=== PATIENT | female | born 1970 | race Caucasian/White ===

== ENCOUNTER 2023-04-21 13:29 | Emergency (ER) | payer SELFPAY ==
--- OUTSIDE RECORDS SUMMARY | 2023-04-21 13:32 | XMS REPORT | Continuity of Care Document ---
:1970 Author Organization [facility] t Address [address] [facility] [address] [place] [id number] Care Team Providers Name Role Phone DEXTER CONTI Attending Clinician Unavailable Dexter Conti MD Attending Clinician Doctor Unassigned, [place] Attending Clinician Unavailable Payers Payer Name Policy Type Policy Number Effective Date Expiration Date S [employer] COMM[employer]CIAL [id number] 2017 NON-CONTRACT 00:00:00 GENERIC Problems Condition Condition Condition Status Onset Resolution Last Treating Co mments Source Name Details Category Date Date Treatment Clinician Date Abnormal Abnormal Disease Active 2019-07 Unive rs uterine uterine 0-19 ity of bleeding bleeding 00:00: [place] (AUB) (AUB) 00 Medical Branch History of History of Disease Active 2019-07 U nivers anemia anemia 0-19 ity of 00:00: [place] [facility] Allergies, Adverse Reactions, Alerts Allergy Allergy Status Severity Reaction(s) Onset Inactive Treating Comm ents Source Name Type Date Date Clinician Iodine Propensi Active Swelling 2019-07 Univer s ty to 0-19 ity of adverse 00:00: [place] reaction 00 Medical s Branch IODINE DRUG Active Swelling 2019-07 Univers INGREDI 0-19 ity of 00:00: [place] [facility] NO KNOWN Drug Active Univers ALLERGIE Class ity of S [facility] Social History Social Habit Start Date Stop Date Quantity Comments Source Exposure to Not sure [facility] SARS-CoV-2 [facility] (event) Branch Sex Assigned At Universit y of [facility] Tobacco use and 2020-05-07 2020-05-07 Never used Universit y of exposure 00:00:00 00:00:[address] [facility] Alcohol intake 2020-05-07 2020-05-07 Ex-drinker [facility] 00:00:00 00:00:00 (finding) [place] [facility] Alcohol Comment 2020-05-07 2020-05-07 quit when she Univer sity of 00:00:00 00:00:00 found out she [place] Medic al was a diabetic Branch in 2012 Smoking Status Start Date Stop Date Source Unknown if ever smoked [facility] [place] [facility] Never smoker [facility] Medications Ordered Filled Start Stop Current Ordering Indication Dosage Frequency Signature Comments Components Source Medication Medication Date Date Medication? Clinician (SIG) Name Name metFORMIN 2019-07 Yes 1000mg Take 1,000 Univers 1,000 mg 0-19 mg by ity of tablet 13:30: mouth 2 [place] 26 (two) Medical times Branch daily with meals. glipiZIDE 2019-07 Yes 10mg Take 10 mg Un simón 10 mg 0-19 by mouth 2 ity of tablet 13:30: (two) [place] 26 times Medical daily. Branch ferrous 2019-07 Yes 325mg Take 325 Unive rs sulfate 325 0-19 mg by ity of mg (65 mg 13:30: mouth [place] iron) EC 26 daily. Medical tablet Branch lisinopriL 2019-07 Yes 20mg Take 20 mg U nivers 20 mg 0-19 by mouth ity of tablet 13:30: daily. [place] [address] Medical Branch calcium 2019-07 Yes 2{tbl} Take 2 Univer s carbonate 0-19 tablets by ity of (CALCIUM 13:30: mouth [place] 500 ORAL) 26 daily. Medical Branch vitamin 2019-07 Yes 1000ug Take 1,000 Un simón B-12 0-19 mcg by ity of (VITAMIN 13:30: mouth [place] B-12) 1,000 26 daily. Medica l mcg tablet Branch metFORMIN 2019-07 Yes 1000mg Take 1,000 Univers 1,000 mg 0-19 mg by ity of tablet 13:30: mouth 2 [place] 26 (two) Medical times Branch daily with meals. glipiZIDE 2019-07 Yes 10mg Take 10 mg Un simón 10 mg 0-19 by mouth 2 ity of tablet 13:30: (two) [place] 26 times Medical daily. Branch ferrous 2019-07 Yes 325mg Take 325 Unive rs sulfate 325 0-19 mg by ity of mg (65 mg 13:30: mouth [place] iron) EC 26 daily. Medical tablet Branch lisinopriL 2019-07 Yes 20mg Take 20 mg U nivers 20 mg 0-19 by mouth ity of tablet 13:30: daily. [place] 26 Medical Branch calcium 2019-07 Yes 2{tbl} Take 2 Univer s carbonate 0-19 tablets by ity of (CALCIUM 13:30: mouth [place] 500 ORAL) 26 daily. Medical Branch vitamin 2019-07 Yes 1000ug Take 1,000 Un simón B-12 0-19 mcg by ity of (VITAMIN 13:30: mouth [place] B-12) 1,000 26 daily. Medica l mcg tablet Branch gabapentin 2019-07 Yes [id number] 300mg Take 1 Univers 300 mg 0-19 capsule by ity of capsule 00:00: mouth 3 [place] 00 (three) Medical times Branch daily. gabapentin 2019-07 Yes [id number] 300mg Take 1 Univers 300 mg 0-19 capsule by ity of capsule 00:00: mouth 3 [place] 00 (three) Medical times Branch daily. Procedures Procedure Date / Time Performing Clinician Source Performed ASSIGNMENT OF BENEFITS 2020-05-23 18:45:03 Doctor Unassigned, [facility] [place] [facility] PATIENT FINANCIAL 2020-05-07 13:07:39 Doctor Unassigned, [facility] POLICY [place] [facility] NO SHOW OR MISSED 2020-05-07 13:07:14 Doctor Unassigned, [facility] APPOINTMENT POLICY [place] [facility] ACKNOWLEDGEMENT CONSENT TO CONTACT FOR 2020-05-07 13:06:49 Doctor Unassigned, [facility] VOLUNTARY RESEARCH [place] [facility] h CONSENT/REFUSAL FOR 2020-05-07 13:06:19 Doctor Unassigned, [facility] DIAGNOSIS AND TREATMENT [place] [facility] ASSIGNMENT OF BENEFITS 2020-05-07 13:05:51 Doctor Unassigned, [facility] [place] [facility] ASSIGNMENT OF BENEFITS 2020-05-07 13:05:38 Doctor Unassigned, [facility] [place] [facility] Encounters Start End Encounter Admission Attending Care Care Encounter Source Date/Time Date/Time Type Type Clinicians Facility Department ID 2023-02-19 2023-02-19 Outpatient [facility] [id number] 023 [place] 11:47:44 11:47:44 08 Bernard Pak 2023-02-17 2023-02-17 Outpatient [facility] [id number] 023 [place] 11:24:41 11:24:41 [facility]01 [facility] [place] 2023-02-05 2023-02-05 Outpatient [facility] [id number] 023 [place] 09:05:18 09:05:18 0720 [facility] [place] 2023-02-04 2023-02-04 Outpatient [facility]FA [id number] 023 [place] 16:54:34 16:54:34 0719 [facility] [place] 2023-02-02 2023-02-02 Outpatient [facility] SFA [id number] 023 [place] 17:07:04 17:07:04 0717 [facility] [place] 2023-01-27 2023-01-27 Outpatient [facility] SFA [id number] 023 [place] 16:43:33 16:43:33 0711 [facility] 2023-01-26 2023-01-26 Outpatient [facility] SFA [id number] 023 Jo[place] 16:43:33 16:43:33 0710 [facility] [place] 2022-09-29 2022-09-29 Outpatient [facility] SFA [id number] 023 [place] 11:10:15 11:10:15 0313 [facility] [place] 2022-07-03 2022-07-03 Outpatient [facility] SFA [id number] 022 [place] 16:58:19 16:58:19 1215 [facility] 2020-07-09 2020-07-09 Outpatient R DEXTER CONTI [facility] [id number] Univers 08:00:00 08:00:[address] [facility] 2020-05-23 2020-05-23 [facility] Dexter Conti [facility] [id number] Univers 12:46:36 23:59:00 Encounter [place] [id number] ity of [place] [id number] [facility] [id number] [facility] 800 Branch 2020-05-23 2020-05-23 Outpatient R DEXTER CONTI [facility] [id number] Univers 13:20:00 13:20:[address] [facility] 2020-05-23 2020-05-23 Orders Doctor PETERSON [id number] Univers 00:00:00 00:00:00 Only Unassigned, M[place] [id number] [facility] 4.2.7.2.686 [place] [facility] [id number] [address] 2020-05-07 2020-05-07 Outpatient R DEXTER CONTI [facility] [id number] Univers 08:00:00 08:00:[address] [facility] 2020-05-07 2020-05-07 Orders Doctor NICHOLAS [id number] Univers 00:00:00 00:00:00 Only Unassigned, MELODY [id number] ity of [place] [facility] 4.2.7.2.686 Lukasz as [id number] [address] Results Test Description Test Time Test Comments Results Result Comments Source TSH, THIRD GENERATION 2023-02-06 06:20:50 Test Item Value Reference Range Interpretation Comme nts TSH, THIRD GENERATION (test 1.380 UIU/ML 0.400-4.100 UNLESS OTHERWISE INDICATED, code = 2821) ALL TESTING PER FORMED AT CLINICAL PATHOL [email or web address], [place] [address] 7475 CREDIT RISK SPECIALIST: Alexa MALCOLM [id number] [place] [id number] LIPID [id number] 05:49:11 Test Item Value Reference Range Interpretation Comments CHOLESTEROL (test 159 MG/DL <200 code = 2210) TRIGLYCERIDES (test 161 MG/DL <150 H code = 2232) HDL CHOLESTEROL (test 41 MG/DL >39 code = 2220) CALC LDL CHOL (test 92 MG/DL <100 NOTE: C ALCULATED LDL code = 2237) IS BASED ON LONNIE-SWAIN METHOD WHICHINCLUDES ADJUSTABLE TRIGLYCERIDE:VL DL CHOLESTEROL RAT IO.THIS FACTOR VARIES B Y MEASURED TRIGLY CERIDE AND NON-HDLCHOL ESTEROL CONCENTRATIONS WITH INCREASED CALCU LATED LDL SEENIN HIGH ER TRIGLYCERIDE OR LOWER NON-HDL SPECIME NS. FOR MOREINFORMATION , SEE CLIENT ANNOUNCE MENT AT [email or web address] RISK RATIO LDL/HDL 2.24 RATIO <3.22 (test code = 2238) COMPREHENSIVE METABOLIC [id number] 05:49:11 Test Item Value Reference Range Interpretation Comments GLUCOSE (test code = 208 MG/DL 70-99 H 2216) BUN (test code = 15 MG/DL 01-06) CREATININE (test 0.65 MG/DL 0.60-1.30 code = 221) eGFR (2020 CKD-EPI) 107 >60 (test code = 32069) ML/MIN/1.73 CALC BUN/CREAT (test 23 RATIO 6-28 code = 2234) SODIUM (test code = 141 MEQ/L 654-433 7263) POTASSIUM (test code 4.5 MEQ/L 3.5-5.4 = 2227) CHLORIDE (test code 104 MEQ/L 95-107 = 2214) CARBON DIOXIDE (test 27 MEQ/L 19-31 code = 2205) CALCIUM (test code = 9.7 MG/DL 8.5-10.5 2208) PROTEIN, TOTAL (test 7.4 G/DL 6.1-8.3 code = 2228) ALBUMIN (test code = 4.6 G/DL 3.5-5.2 2200) CALC GLOBULIN (test 2.8 G/DL 1.9-3.7 code = 2239) CALC A/G RATIO (test 1.6 RATIO 1.0-2.6 code = 2233) BILIRUBIN, TOTAL 0.3 MG/DL See_Comment [Automated message] (test code = 2206) The [employer] which generated this result transmit christopher reference range : <=1.2. The refe rence range was not u sed to interpret th is result as normal/abnormal . ALKALINE PHOSPHATASE 56 U/L 40-130 (test code = 2203) AST (test code = 19 U/L 9-40 2217) ALT (test code = 27 U/L 5-40 2218) HEMOGLOBIN [id number] 02:20:56 Test Item Value Reference Range Interpretation Comments HEMOGLOBIN A1c (test 6.9 % 4.2-5.6 H AMERIC AN DIABETES code = 58490) ASSOCIATION IDELINES FOR HGB A1C: PREDIABETES/INC REASED RISK . . . . . . . 5.7 -6.4% DIAGNOSIS OF DI ABETES . . . . . . . . . >=6 .5% WITH CONFIRMATION OR APPROPRIATE SYMPTOMS NOTE: ASSAY MAY BE AFFECTED BY HEMOGLOBINOPATH IES (SICKLE CELL ANEMIA, S- C DISEASE, OTHERS) OR GARO FICIALLY LOWERED BY DECR EASED RED CELL SURVIVAL ( HEMOLYTIC ANEMIAS, BLOOD LOSS, ETC.). CONSIDER ALTERN ATE TESTING OR LABORATORY C ONSULTATION. CBC W/AUTO DIFF WITH [id number] 01:54:06 Test Item Value Reference Range Interpretation Comments WBC (test code = 6.4 K/UL 3.5-11.0 1001) RBC (test code = 4.38 M/UL 3.80-5.40 1002) HEMOGLOBIN (test code 11.7 G/DL 11.5-15.5 = 1003) HEMATOCRIT (test code 36.1 % 34.0-45.0 = 1004) MCV (test code = 82.4 fL 80.0-99.0 1005) MCH (test code = 26.7 PG 25.0-33.0 1006) MCHC (test code = 32.4 G/DL 31.0-36.0 1007) RDW (test code = 13.1 % 11.5-15.0 1038) NEUTROPHILS (test 72.1 % code = 1008) LYMPHOCYTES (test 19.7 % code = 1010) MONOCYTES (test code 6.0 % = 1011) EOSINOPHILS (test 1.6 % code = 1012) BASOPHILS (test code 0.3 % = 1013) IMMATURE GRANULOCYTES 0.3 % (test code = 1036) NUCLEATED RBCS (test 0.0 /100 WBC'S See_Comment [Aut omated code = 1065) message] The sy stem which generated this result transmitted reference range : 0.0. The refere nce range was not u sed to interpret th is result as normal/abnormal . PLATELET COUNT (test 306 K/UL 130-400 code = 1015) ABSOLUTE NEUTROPHILS 4.59 K/UL 1.50-7.50 (test code = 1066) ABSOLUTE LYMPHOCYTES 1.25 K/UL 1.00-4.00 (test code = 1067) ABSOLUTE MONOCYTES 0.38 K/UL 0.20-1.00 (test code = 1068) ABSOLUTE EOSINOPHILS 0.10 K/UL 0.00-0.50 (test code = 1040) ABSOLUTE BASOPHILS 0.02 K/UL 0.00-0.20 (test code = 1069) ABS IMMATURE 0.02 K/UL 0.00-0.10 GRANULOCYTES (test code = 1020) ABS NUCLEATED RBCS 0.00 K/UL 0.00-0.11 (test code = 09415) HEMOGLOBIN [id number] 03:09:29 Test Item Value Reference Range Interpretation Comments HEMOGLOBIN A1c (test 6.6 % 4.2-5.6 H AMERIC AN DIABETES code = 80714) ASSOCIATION IDELINES FOR HGB A1C: PREDIABETES/INC REASED RISK . . . . . . . 5.7 -6.4% DIAGNOSIS OF DI ABETES . . . . . . . . . >=6 .5% WITH CONFIRMATION OR APPROPRIATE SYMPTOMS NOTE: ASSAY MAY BE AFFECTED BY HEMOGLOBINOPATH IES (SICKLE CELL ANEMIA, S- C DISEASE, OTHERS) OR GARO FICIALLY LOWERED BY DECR EASED RED CELL SURVIVAL ( HEMOLYTIC ANEMIAS, BLOOD LOSS, ETC.). CONSIDER ALTERN ATE TESTING OR LABORATORY C ONSULTATION. UNLESS OTHERWIS E INDICATED, ALL TESTING PER FORMED AT [employer], [place] [address] LABORATORY DIRE CTOR: CORDELIA SAMPSON M.D. CLIA NUMBER [id number] CAP ACCREDITATION N O. [id number] COMPREHENSIVE METABOLIC [id number] 06:53:34 Test Item Value Reference Range Interpretation Comments GLUCOSE (test code = 53 MG/DL 70-99 L 2216) BUN (test code = 15 MG/DL 6-20 2207) CREATININE (test 0.72 MG/DL 0.60-1.30 code = 2214) eGFR (2020 CKD-EPI) 101 >60 (test code = 52538) ML/MIN/1.73 CALC BUN/CREAT (test 21 RATIO 6-28 code = 2235) SODIUM (test code = 141 MEQ/L 960-777 2517) POTASSIUM (test code 4.3 MEQ/L 3.5-5.4 = 2227) CHLORIDE (test code 103 MEQ/L 95-107 = 2215) CARBON DIOXIDE (test 25 MEQ/L 19-31 code = 2206) CALCIUM (test code = 10.1 MG/DL 8.5-10.5 2208) PROTEIN, TOTAL (test 8.5 G/DL 6.1-8.3 H code = 2229) ALBUMIN (test code = 4.8 G/DL 3.5-5.2 2200) CALC GLOBULIN (test 3.7 G/DL 1.9-3.7 code = 2240) CALC A/G RATIO (test 1.3 RATIO 1.0-2.6 code = 2234) BILIRUBIN, TOTAL 0.3 MG/DL See_Comment [Automated message] (test code = 2207) The syste m which generated this result transmit christopher reference range : <=1.2. The refe rence range was not u sed to interpret th is result as normal/abnormal . ALKALINE PHOSPHATASE 52 U/L 40-130 (test code = 4) AST (test code = 36 U/L 9-40 2217) ALT (test code = 35 U/L 5-40 2218) LIPID [id number] 06:53:34 Test Item Value Reference Range Interpretation Comments CHOLESTEROL (test 169 MG/DL <200 code = 2210) TRIGLYCERIDES (test 114 MG/DL <150 code = 2232) HDL CHOLESTEROL (test 45 MG/DL >39 code = 2220) CALC LDL CHOL (test 103 MG/DL <100 H NOTE: C ALCULATED LDL code = 2237) IS BASED ON LONNIE-SWAIN METHOD WHICHINCLUDES ADJUSTABLE TRIGLYCERIDE:VL DL CHOLESTEROL RAT IO.THIS FACTOR VARIES B Y MEASURED TRIGLY CERIDE AND NON-HDLCHOL ESTEROL CONCENTRATIONS WITH INCREASED CALCU LATED LDL SEENIN HIGH ER TRIGLYCERIDE OR LOWER NON-HDL SPECIME NS. FOR MOREINFORMATION , SEE CLIENT ANNOUNCE MENT AT [email or web address] RISK RATIO LDL/HDL 2.29 RATIO <3.22 (test code = 2238) ALBUMIN/CREATININE RATIO, URINE, [id number] 06:42:31 Test Item Value Reference Range Interpretation Comments CREATININE, URINE, 29.0 MG/DL NOT ESTAB CONC. (test code = 2072) ALBUMIN, URINE, <0.2 MG/DL NOT ESTAB RANDOM (test code = 67649) CALC <7 MG/G <30 Note: Albumin/ Creatinine ALBUMIN/CREAT, RND ratio ref erence interval (test code = reflects ADA [place] [address]) guidelines. * [facility] has important patho logy staff changes effecti ve 09/17/2022. New pathology staff will provide uninter rupted, excellent patie nt care and clinical consultation. S ee URL: [email or web address] UNLESS O THERWISE INDICATED, ALL TESTING [facility]FORMED AT [facility] [employer] [address] [place], [place] [address] YUAN AYERS DIRECTOR: DION DA SILVA M.D. C ADRIAN NUMBER [id number] CAP ACCREDITATION N O. [id number] HEMOGLOBIN [id number] 02:34:20 Test Item Value Reference Range Interpretation Comments HEMOGLOBIN A1c (test 7.1 % 4.2-5.6 H AMERIC AN DIABETES code = 16231) ASSOCIATION IDELINES FOR HGB A1C: PREDIABETES/INC REASED RISK . . . . . . . 5.7 -6.4% DIAGNOSIS OF DI ABETES . . . . . . . . . >=6 .5% WITH CONFIRMATION OR APPROPRIATE SYMPTOMS NOTE: ASSAY MAY BE AFFECTED BY HEMOGLOBINOPATH IES (SICKLE CELL ANEMIA, S- C DISEASE, OTHERS) OR GARO FICIALLY LOWERED BY DECR EASED RED CELL SURVIVAL ( HEMOLYTIC ANEMIAS, BLOOD LOSS, ETC.). CONSIDER ALTERN ATE TESTING OR LABORATORY C ONSULTATION. [id number] 02:53:47 Test Item Value Reference Range Interpretation Comments AMYLASE (test code = 76 U/L 28-100 UNLESS OTHERWISE 2205) INDICATED, ALL TESTING PERFORMED [facility] PATHOLOGY [employer] [address] [place] [address] YUAN AYERS DIRECTOR: HALIMA LISA M.D. CLIA NUMBER [id number] CAP ACCREDITATION N O. [id number] 02:53:47 Test Item Value Reference Range Interpretation Comments LIPASE (test code = 2058) 48 U/L 13-60 [id number] 03:45:26 Test Item Value Reference Range Interpretation Comments AMYLASE (test code = 2205) 40 U/L 28-100 [id number] 03:45:26 Test Item Value Reference Range Interpretation Comments LIPASE (test code = 28 U/L 13-60 UNLESS OTHERWISE 2058) INDICATED, ALL TESTING PERFORMED [facility] [employer] [address] [place] [address] [facility] BALLARDCyrus AYERS DIRECTOR: HALIMA LISA M.D. CLIA NUMBER [id number] [place]EDITATION N O. [id number] HEMOGLOBIN [id number] 03:27:05 Test Item Value Reference Range Interpretation Comments HEMOGLOBIN A1c (test 12.0 % 4.2-5.6 H AMERI CAN DIABETES code = 17583) ASSOCIATION IDELINES FOR HGB A1C: PREDIABETES/INC REASED RISK . . . . . . . 5 .7-6.4% DIAGNOSIS OF DI ABETES . . . . . . . . . >=6 .5% WITH CONFIRMATION OR APPROPRIATE SYMPTOMS NOTE: ASSAY MAY BE AFFECTED BY HEMOGLOBINOPATH IES (SICKLE CELL ANEMIA, S- C DISEASE, OTHERS) OR GARO FICIALLY LOWERED BY DECR EASED RED CELL SURVIVAL ( HEMOLYTIC ANEMIAS, BLOOD LOSS, ETC.). CONSIDER ALTERN ATE TESTING OR LABORATORY C ONSULTATION. LIPID [id number] 02:37:12 Test Item Value Reference Range Interpretation Comments CHOLESTEROL (test 267 MG/DL <200 H code = 2210) TRIGLYCERIDES (test 779 MG/DL <150 H code = 2232) HDL CHOLESTEROL 31 MG/DL >39 L (test code = 2220) CALC LDL CHOL (test (NOTE) MG/DL <100 UNABLE T O CALCULATE A code = 2237) VALID LDL SAHIL STEROL WHEN THE TRIGLYCERIDEVAL UE IS GREATER THAN 40 0 MG/DL.UNABLE TO CALCULATE A AVINASH ID LDL CHOLESTEROL WHE N THE TRIGLYCERIDEVAL UE IS GREATER THAN 40 0 MG/DL. NOTE: CALCULATE D LDL IS BASED ON LONNIE -SWAIN METHOD WHICHINC LUDES ADJUSTABLE TRIGLYCERIDE:VL DL CHOLESTEROL RAT IO.THIS FACTOR VARIES B Y MEASURED TRIGLY CERIDE AND NON-HDLCHOL ESTEROL CONCENTRATIONS WITH INCREASED CALCU LATED LDL SEENIN HIGH ER TRIGLYCERIDE OR LOWER NON-HDL SPECIME NS. FOR MOREINFORMATION , SEE CLIENT ANNOUNCE MENT AT [email or web address] RISK RATIO LDL/HDL (NOTE) RATIO <3.22 UNABLE T O CALCULATE (test code = 2238) COMPREHENSIVE METABOLIC [id number] 02:37:12 Test Item Value Reference Range Interpretation Comments GLUCOSE (test code = 286 MG/DL 70-99 H 2216) BUN (test code = 12 MG/DL -20 2207) CREATININE (test 0.43 MG/DL 0.60-1.30 L code = 2214) eGFR (2020 CKD-EPI) 118 >60 (test code = 05765) ML/MIN/1.73 CALC BUN/CREAT (test 28 RATIO - code = 2235) SODIUM (test code = 136 MEQ/L 152-535 4003) POTASSIUM (test code 4.5 MEQ/L 3.5-5.4 = 2227) CHLORIDE (test code 99 MEQ/L 95-107 = 221) CARBON DIOXIDE (test 26 MEQ/L 19-31 code = 220) CALCIUM (test code = 9.6 MG/DL 8.5-10.5 2208) PROTEIN, TOTAL (test 7.8 G/DL 6.1-8.3 code = 222) ALBUMIN (test code = 4.3 G/DL 3.5-5.2 2200) CALC GLOBULIN (test 3.5 G/DL 1.9-3.7 code = 2240) CALC A/G RATIO (test 1.2 RATIO 1.0-2.6 code = 223) BILIRUBIN, TOTAL 0.3 MG/DL See_Comment [Automated message] (test code = 2206) The [employer] which generated this result transmitted ref erence range: <=1.2. T he reference range was not used to int erpret this result as normal/abnormal . ALKALINE PHOSPHATASE 111 U/L 40-128 (test code = 2203) AST (test code = 15 U/L 9-40 2217) ALT (test code = 30 U/L 5-40 UNLESS OTH ERWISE 2218) INDICATED, ALL TESTING PERFORM ED [facility], [facility]. [address] [place] [id number] [place] [address] DIRECTOR: HALIMA LISA M.D. CLIA NUMBER [id number] CAP ACCREDITATION N O. [id number] CONSENT TO CONTACT FOR VOLUNTARY [id number] 13:06:49 Test Item Value Reference Range Interpretation Comments Consent To Contact For Voluntary Yes Research (test code = 4947) [facility]
[2023-04-21 14:19] LABS: Absolute Lymphocytes (CBC) 1.6 K/uL (0.7-4.9); Hematocrit 38.1 % (36.0-45.0); MCV 78.7 fL (80-100); MPV 7.7 fL (7.6-11.3); Platelets 241 thou/uL (152-406); RBC Red Blood Cell Count 4.84 M/uL (3.86-4.86)
[2023-04-21 14:23] LABS: Protime INR 1.05
[2023-04-21] MEDS ORDERED: NA CHLORIDE 0.9% 1,000 ML ONE (14:24)
--- NOTE | 2023-04-21 14:41 | RAD REPORT ---
EXAM DESCRIPTION: US - Extrem Venous W Compress Kj - 04/21/2023 2:33 pm CLINICAL HISTORY: PAIN Bilateral leg edema and swelling. COMPARISON: No comparisons TECHNIQUE: Real-time sonographic interrogation of the left and right lower extremity deep venous sys tems was performed. FINDINGS: Normal compressibility, flow augmentation, phasic flow and spontaneous flow is identified in both the left and right lower extremity deep venous systems. IMPRESSION: No sonographic evidence of left or right lower extremity deep venous thrombosis.
[2023-04-21 14:44] LABS: ALT/SGPT 31 U/L (13-56); AST/SGOT 9 U/L (15-37); Albumin 3.6 g/dL (3.4-5.0); Alkaline Phosphatase 76 U/L (45-117); BUN Blood Urea Nitrogen 18 mg/dL (7-18); Bicarbonate 25 mEq/L (21-32); Bilirubin Total 0.3 mg/dL (0.2-1.0); Glomerular Filtration Rate 67 ml/min (=/>90); Glucose Level 281 mg/dL (74-106); Lipase 53 U/L (13-75); Magnesium 1.9 mg/dL (1.6-2.4); NT PRO-BNP 9 pg/mL (<125); Potassium 3.9 mEq/L (3.5-5.1); Protein, Total 7.9 g/dL (6.4-8.2); Sodium Level 134 mEq/L (136-145); Troponin High Sensitivity 4.6 pg/mL (<58.9)
[2023-04-21 14:51] LABS: Bilirubin Direct < 0.1 mg/dL (0-0.2); Bilirubin Indirect, Calculated ND mg/dL (0.2-0.8)
[2023-04-21 15:01] LABS: Specific Gravity 1.014 (1.005-1.030); Urine Bacteria <20 /HPF (<20); Urine Bilirubin NEGATIVE (Negative); Urine Blood Negative (Negative); Urine Clarity Turbid (Clear); Urine Color Light-Yellow (Yellow); Urine Crystals Unidentified Few /HPF (None Seen); Urine Glucose 4+ (Negative); Urine Mucus Slight /HPF (None Seen); Urine Protein TRACE (Negative); Urine RBC <5 /HPF (None Seen); Urine Urobilinogen Normal (Normal)
--- NOTE | 2023-04-21 15:03 | RAD REPORT ---
EXAM DESCRIPTION: RAD - Chest Single View - 04/21/2023 2:55 pm CLINICAL HISTORY: PAIN Chest pain. COMPARISON: <Comparisons> FINDINGS: Portable technique limits examination quality. The lungs are grossly clear. The heart is normal in size. No displaced fractures. IMPRESSION: No acute intrathoracic process suspected.
--- NOTE | 2023-04-21 15:34 | RAD REPORT ---
EXAM DESCRIPTION: CT - Head Brain Wo Cont - 04/21/2023 3:24 pm CLINICAL HISTORY: DIZZINESS Headache, drowsiness, dizziness COMPARISON: No comparisons TECHNIQUE: All CT scans are performed using dose optimization technique as appropriate and may inclu de automated exposure control or mA/KV adjustment according to patient size. FINDINGS: No intracranial hemorrhage, hydrocephalus or extra-axial fluid collection.No areas of brai n edema or evidence of midline shift. The paranasal sinuses and mastoids are clear. The calvarium is intact. IMPRESSION: No acute intracranial abnormality.
--- NOTE | 2023-04-21 16:28 | EDPHYS ---
Physician Documentation [facility] Name: Bonnie Quigley Age: 52 yrs Sex: Female : 1970 Arrival Date: 04/21/2023 Time: 13:29 Bed 14 Private MD: ED Physician Amari Garnett HPI: 04/21 16:23 This 52 yrs old Female presents to ER via EMS with complaints of Weakness, irma Dizziness, Headache, Leg Pain. 16:23 WEAK, DIZZY. The patient presents with dizziness, generalized weakness. Onset: The irma symptoms/episode began/occurred just prior to arrival. Context: occurred at work. Modifying factors: The symptoms are alleviated by nothing, the symptoms are aggravated by standing up. Associated signs and symptoms: Pertinent positives: headache. Severity of symptoms: At their worst the symptoms were mild in the emergency department the symptoms are unchanged. Patient's baseline: Neuro: alert and fully oriented. Historical: - Allergies: 13:41 Iodine; eh3 - Home Meds: 13:41 Metformin Oral [Active]; Lisinopril Oral [Active]; eh3 - PMHx: 13:41 Diabetes mellitus; Hypertensive disorder; eh3 13:43 Neuropathy; eh3 - Immunization history:: Adult Immunizations up to date. - Social history:: Smoking status: Patient denies any tobacco usage or history of. - Family history:: not pertinent. ROS: 16:23 Constitutional: Negative for fever, chills, and weight loss, Eyes: Negative for injury, irma pain, redness, and discharge, ENT: Negative for injury, pain, and discharge, Neck: Negative for injury, pain, and swelling, Cardiovascular: Negative for chest pain, palpitations, and edema, Respiratory: Negative for shortness of breath, cough, wheezing, and pleuritic chest pain, Abdomen/GI: Negative for abdominal pain, nausea, vomiting, diarrhea, and constipation, Back: Negative for injury and pain, : Negative for injury, bleeding, discharge, and swelling, Skin: Negative for injury, rash, and discoloration, Psych: Negative for depression, anxiety, suicide ideation, homicidal ideation, and hallucinations, Allergy/Immunology: Negative for hives, rash, and allergies, Endocrine: Negative for neck swelling, polydipsia, polyuria, polyphagia, and marked weight changes, Hematologic/Lymphatic: Negative for swollen nodes, abnormal bleeding, and unusual bruising, 16:23 MS/extremity: Positive for pain, of the right leg and left leg, 16:23 Neuro: Positive for weakness, Exam: 16:23 Constitutional: This is a well developed, well nourished patient who is awake, alert, irma and in no acute distress. Head/Face: Normocephalic, atraumatic. Eyes: Pupils equal round and reactive to light, extra-ocular motions intact. Lids and lashes normal. Conjunctiva and sclera are non-icteric and not injected. Cornea within normal limits. Periorbital areas with no swelling, redness, or edema. ENT: Nares patent. No nasal discharge, no septal abnormalities noted. Tympanic membranes are normal and external auditory canals are clear. Oropharynx with no redness, swelling, or masses, exudates, or evidence of obstruction, uvula midline. Mucous membranes moist. Neck: Trachea midline, no thyromegaly or masses palpated, and no cervical lymphadenopathy. Supple, full range of motion without nuchal rigidity, or vertebral point tenderness. No Meningismus. Chest/axilla: Normal chest wall appearance and motion. Nontender with no deformity. No lesions are appreciated. Cardiovascular: Regular rate and rhythm with a normal S1 and S2. No gallops, murmurs, or rubs. Normal PMI, no JVD. No pulse deficits. Respiratory: Lungs have equal breath sounds bilaterally, clear to auscultation and percussion. No rales, rhonchi or wheezes noted. No increased work of breathing, no retractions or nasal flaring. Abdomen/GI: Soft, non-tender, with normal bowel sounds. No distension or tympany. No guarding or rebound. No evidence of tenderness throughout. Back: No spinal tenderness. No costovertebral tenderness. Full range of motion. Skin: Warm, dry with normal turgor. Normal color with no rashes, no lesions, and no evidence of cellulitis. MS/ Extremity: Pulses equal, no cyanosis. Neurovascular intact. Full, normal range of motion. Neuro: Awake and alert, GCS 15, oriented to person, place, time, and situation. Cranial nerves II-XII grossly intact. Motor strength 5/5 in all extremities. Sensory grossly intact. Cerebellar exam normal. Normal gait. Psych: Awake, alert, with orientation to person, place and time. Behavior, mood, and affect are within normal limits. 16:23 ECG was reviewed by the Attending Physician. 16:23 Musculoskeletal/extremity: DVT Exam: No signs of deep vein thrombosis. no pain, no swelling, no tenderness, negative Homans' sign noted on exam, no appreciated bluish discoloration, no erythema, no increased warmth, Vital Signs: 13:36 BP 140 / 77; Pulse 94; Resp 16; Temp 98.8(O); Pulse Ox 100% on R/A; Weight 79.38 kg; eh3 Height 5 ft. 2 in. ; Pain 5/10; 14:30 BP 141 / 82; Pulse 96; Resp 15; Pulse Ox 100% on R/A; eh3 15:30 BP 138 / 70; Pulse 91; Resp 14; Pulse Ox 96% on R/A; eh3 16:30 BP 122 / 72; Pulse 86; Resp 15; Pulse Ox 96% on R/A; eh3 13:36 Body Mass Index 32.01 (79.38 kg, 157.48 cm) 3 13:36 Pain Scale: Adult eh3 NIH Stroke Scale Scores: 17:01 NIHSS Score: 0 irma MDM: 13:30 Patient medically screened. irma 13:31 Patient medically screened. irma 16:26 Differential Diagnosis altered mental status. Differential diagnosis: cardiac irma arrhythmia, CVA, generalized weakness, GI bleed, hypovolemia, idiopathic dizziness, near-syncope, sepsis, syncope, TIA, vertigo. Data reviewed: vital signs, nurses notes, EMS record, lab test result(s), EKG, radiologic studies, CT scan, plain films. Consideration of Admission/Observation Escalation of care including admission/observation considered. I considered the following discharge prescriptions or medication management in the emergency department Medications were administered in the Emergency Department. See MAR. Independent interpretation of the following test(s) in the Emergency Department EKG: See my EKG interpretation above. Test considered but Not performed: MRI: NO MRI BRAIN. Care significantly affected by the following chronic conditions: Diabetes, Hypertension. Counseling: I had a detailed discussion with the patient and/or guardian regarding the historical points, exam findings, and any diagnostic results supporting the discharge/admit diagnosis, lab results, radiology results, the need for outpatient follow up, for definitive care, a family practitioner. 10/03 14:04 Order name: Basic Metabolic Panel; Complete Time: 15:07 irma 04/21 14:04 Order name: CBC with Diff; Complete Time: 15:07 irma 04/21 14:04 Order name: LFT's; Complete Time: 15:07 irma 04/21 14:04 Order name: Magnesium; Complete Time: 15:07 irma 04/21 14:04 Order name: NT PRO-BNP; Complete Time: 15:07 irma 04/21 14:04 Order name: PT-INR; Complete Time: 15:07 irma 04/21 14:04 Order name: Troponin HS; Complete Time: 15:07 irma 04/21 14:04 Order name: Lipase; Complete Time: 15:07 irma 04/21 14:04 Order name: Urinalysis w/ reflexes; Complete Time: 15:07 irma 04/21 14:04 Order name: TSH; Complete Time: 15:07 irma 04/21 14:04 Order name: Flu; Complete Time: 15:07 irma 04/21 14:04 Order name: COVID-19 SARS RT PCR; Complete Time: 15:07 irma 04/21 17:03 Order name: Glucose, Ancillary Testing EDMS 04/21 14:04 Order name: XRAY Chest (1 view); Complete Time: 15:07 irma 04/21 14:04 Order name: CT Head Brain wo Cont; Complete Time: 15:54 irma 04/21 14:04 Order name: US Extremity Venous W Compression Kj; Complete Time: 15:07 irma 04/21 14:04 Order name: EKG; Complete Time: 14:05 irma 04/21 14:04 Order name: Cardiac monitoring; Complete Time: 14:05 irma 04/21 14:04 Order name: EKG - Nurse/Tech; Complete Time: 14:05 irma 04/21 14:04 Order name: IV Saline Lock; Complete Time: 14:05 irma 04/21 14:04 Order name: Labs collected and sent; Complete Time: 14:05 irma 04/21 14:04 Order name: O2 Per Protocol; Complete Time: 14:05 irma 04/21 14:04 Order name: O2 Sat Monitoring; Complete Time: 14:05 irma 04/21 16:28 Order name: PO challenge; Complete Time: 16:59 irma EC:23 Rate is 97 beats/min. Rhythm is regular. QRS [place] is Normal. [place] interval is normal. QRS irma interval is normal. QT interval is normal. No Q waves. T waves are Normal. No ST changes noted. Clinical impression: NSR w/ Non-specific ST/T Changes and No evidence of ischemia. Interpreted by me. Reviewed by me. Administered Medications: 14:35 Drug: NS 0.9% IV 1000 ml IV at 1 bolus Per protocol; 1000 mL bolus Route: IV; Rate: 1 eh3 bolus; Site: right forearm; 16:00 Follow up: IV Status: Completed infusion; IV Intake: 1000ml eh3 17:00 Drug: Ketorolac IVP 15 mg IVP once Route: IVP; Site: right forearm; eh3 17:15 Follow up: Response: No adverse reaction eh3 17:00 Drug: Ondansetron IVP 4 mg IVP once; over 2 minutes Route: IVP; Site: right forearm; eh3 17:15 Follow up: Response: No adverse reaction eh3 17:00 Drug: Acetaminophen PO 650 mg PO once Route: PO; eh3 17:15 Follow up: Response: No adverse reaction eh3 17:09 Drug: Aspirin PO Chewable Tablet 81 mg PO once Route: PO; eh3 17:14 Follow up: Response: Medication administered at discharge. eh3 Point of Care Testing: Blood Glucose: 13:56 Blood Glucose: 278 mg/dL; eh3 Ranges: Critical Glucose Levels:Adult <50 mg/dl or >400 mg/dl <40 mg/dl or >180 mg/dl Disposition Summary: 04/21/23 16:28 Discharge Ordered Notes: Location: Home irma Problem: new irma Symptoms: have improved irma Condition: Stable irma Diagnosis - Weakness irma - Syncope Near irma - Type 2 diabetes mellitus with hyperglycemia irma - Headache irma Followup: irma - With: Private Physician - When: 2 - 3 days - Reason: Recheck today's complaints, Continuance of care, Re-evaluation by your physician Followup: irma - With: Toni Boyle MD - When: 2 - 3 days - Reason: Recheck today's complaints, Re-evaluation by your physician Discharge Instructions: - Discharge Summary Sheet irma - Hyperglycemia irma - Near-Syncope irma - Weakness irma - Fatigue irma - Near-Syncope, [id number] irma - Diabetes Mellitus and Nutrition, Adult irma - Weakness, [id number] irma - Aspirin and Your Heart irma Forms: - Medication Reconciliation Form irma - Thank You Letter irma - Antibiotic Education irma - Prescription Opioid Use irma - Patient Portal Instructions irma - Leadership Thank You Letter irma NIH Stroke Scale - NIH Stroke Score Date: 04/21/2023 Time: 17:01 Total Score = 0 10. Dysarthria (speech clarity - read or repeat words) - 0(Normal) 11. Extinction and Inattention (visual/tactile/auditory/spatial/personal) - 0(No abnormality) 1a. Level of Consciousness (LOC) - 0(Alert) 1b. Level of Consciousness (LOC) (Month \T\ Age) - 0(Both) 1c. LOC Commands (Open \T\ Closes Eyes/Core Machine Operator) - 0(Both) 2. Best Gaze (Lateral Gaze Paresis) - 0(Normal) 3. Visual Field Loss - 0(No visual loss) 4. Facial Palsy - 0(Normal) 5a. Left Arm: Motor (10-second hold) - 0(No drift) 5b. Right Arm: Motor (10-second hold) - 0(No drift) 6a. Left Leg: Motor (5-second hold - always test supine) - 0(No drift) 6b. Right Leg: Motor (5-second hold - always test supine) - 0(No drift) 7. Limb Ataxia (finger/nose \T\ heel/jeter - test with eyes open) - 0(Absent) 8. Sensory Loss (pinprick arms/legs/face) - 0(Normal) 9. Best Language: Aphasia (description/naming/reading) - 0(No aphasia) Initials: [facility] Signatures: Dispatcher [employer] EDMS Amari Garnett MD MD cha Hall, Erin RN RN eh3 Corrections: (The following items were deleted from the chart) 15:24 14:05 Chest For PE Angio+CT.RAD.BRZ ordered. EDMS EDMS
--- NOTE | 2023-04-21 16:28 | ER ---
Nurse's Notes [facility] Name: Bonnie Quigley Age: 52 yrs Sex: Female : 1970 Arrival Date: 04/21/2023 Time: 13:29 Bed 14 Private MD: Diagnosis: Weakness;Syncope Near;Type 2 diabetes mellitus with hyperglycemia;Headache Presentation: 04/21 13:36 Chief complaint: EMS states: toned out to place of work, sudden onset of dizziness, eh3 weakness, headache, and BLE pain. Coronavirus screen: Vaccine status: Patient reports receiving the 2nd dose of the covid vaccine. Ebola Screen: No symptoms or risks identified at this time. No acute neurological deficit is noted. The patients blood glucose was checked prior to arriving to the hospital and was found to be hyperglycemic. Initial Sepsis Screen: Does the patient meet any 2 criteria? HR > 90 bpm. No. Patient's initial sepsis screen is negative. Does the patient have a suspected source of infection? No. Patient's initial sepsis screen is negative. Risk Assessment: Do you want to hurt yourself or someone else? Patient reports no desire to harm self or others. Onset of symptoms was April 21, 2023. 13:36 Method Of Arrival: EMS: [facility] 13:36 Acuity: DANIEL 2 3 13:36 Care prior to arrival: Glucose check: 310. eh3 Triage Assessment: 13:43 The onset of the patients symptoms was April 21, 2023 at 13:20. General: Appears in eh3 no apparent distress. uncomfortable, Behavior is cooperative, appropriate for age. Pain: Complains of pain in head, right leg and left leg Pain radiates to right arm and left arm. Neuro: Level of Consciousness is awake, alert, obeys commands, Oriented to person, place, time, situation, Export Documents Clerk are equal bilaterally Moves all extremities. Speech is normal, Facial symmetry appears normal, Pupils are PERRLA, Tingling in right arm, left arm, right leg and left leg Reports dizziness, headache weakness. Cardiovascular: Capillary refill < 3 seconds Rhythm is sinus rhythm. Respiratory: Airway is patent Respiratory effort is even, unlabored, Respiratory pattern is regular, symmetrical. GI: Abdomen is round non-distended. Derm: Skin is intact, Skin is diaphoretic, Skin is pink, Skin temperature is warm. Musculoskeletal: Circulation, motion, and sensation intact. Range of motion: intact in all extremities. Historical: - Allergies: 13:41 Iodine; eh3 - Home Meds: 13:41 Metformin Oral [Active]; Lisinopril Oral [Active]; eh3 - PMHx: 13:41 Diabetes mellitus; Hypertensive disorder; eh3 13:43 Neuropathy; eh3 - Immunization history:: Adult Immunizations up to date. - Social history:: Smoking status: Patient denies any tobacco usage or history of. - Family history:: not pertinent. Screenin:46 [facility] ED Fall Risk Assessment (Adult) Score/Fall Risk Level 0 - 2 = Low Risk. Abuse eh3 screen: Denies threats or abuse. Denies injuries from another. Nutritional screening: No deficits noted. Tuberculosis screening: No symptoms or risk factors identified. Assessment: 13:46 VAN Scoring: Arm Drift: Patients demonstrates NO arm weakness. Patient is VAN Negative. eh3 14:30 Reassessment: Patient appears in no apparent distress at this time. Patient and/or [facility] family updated on plan of care and expected duration. Pain level reassessed. Patient is alert, oriented x 3, equal unlabored respirations, skin warm/dry/pink. 15:30 Reassessment: Patient appears in no apparent distress at this time. Patient and/or [facility] family updated on plan of care and expected duration. Pain level reassessed. Patient is alert, oriented x 3, equal unlabored respirations, skin warm/dry/pink. 16:30 Reassessment: Patient appears in no apparent distress at this time. Patient and/or [facility] family updated on plan of care and expected duration. Pain level reassessed. Patient is alert, oriented x 3, equal unlabored respirations, skin warm/dry/pink. Vital Signs: 13:36 BP 140 / 77; Pulse 94; Resp 16; Temp 98.8(O); Pulse Ox 100% on R/A; Weight 79.38 kg; eh3 Height 5 ft. 2 in. ; Pain 5/10; 14:30 BP 141 / 82; Pulse 96; Resp 15; Pulse Ox 100% on R/A; eh3 15:30 BP 138 / 70; Pulse 91; Resp 14; Pulse Ox 96% on R/A; eh3 16:30 BP 122 / 72; Pulse 86; Resp 15; Pulse Ox 96% on R/A; eh3 13:36 Body Mass Index 32.01 (79.38 kg, 157.48 cm) eh3 13:36 Pain Scale: Adult eh3 NIH Stroke Scale Scores: 17:01 NIHSS Score: 0 [facility] ED Course: 13:30 Patient arrived in ED. irma 13:30 Amari Garnett MD is Attending Physician. irma 13:34 Edel Cronin, RN is Primary Nurse. eh3 13:41 Triage completed. eh3 13:43 Arm band placed on. eh3 13:46 Patient has correct armband on for positive identification. Placed in gown. Bed in low eh3 position. Call light in reach. Side rails up X2. Provided Education on: Use of call infante. Client placed on continuous cardiac and pulse oximetry monitoring. NIBP monitoring applied. 14:04 Inserted saline lock: 22 gauge in right forearm, using aseptic technique. Blood eh3 collected. 14:34 US Extremity Venous W Compression Jk In Process Unspecified. EDMS 14:57 XRAY Chest (1 view) In Process Unspecified. EDMS 15:25 CT Head Brain wo Cont In Process Unspecified. EDMS 17:12 Toni Boyle MD is Referral Physician. irma 17:14 No provider procedures requiring assistance completed. IV discontinued, intact, eh3 bleeding controlled, No redness/swelling at site. Pressure dressing applied. Administered Medications: 14:35 Drug: NS 0.9% IV 1000 ml IV at 1 bolus Per protocol; 1000 mL bolus Route: IV; Rate: 1 eh3 bolus; Site: right forearm; 16:00 Follow up: IV Status: Completed infusion; IV Intake: 1000ml eh3 17:00 Drug: Ketorolac IVP 15 mg IVP once Route: IVP; Site: right forearm; eh3 17:15 Follow up: Response: No adverse reaction eh3 17:00 Drug: Ondansetron IVP 4 mg IVP once; over 2 minutes Route: IVP; Site: right forearm; eh3 17:15 Follow up: Response: No adverse reaction eh3 17:00 Drug: Acetaminophen PO 650 mg PO once Route: PO; eh3 17:15 Follow up: Response: No adverse reaction eh3 17:09 Drug: Aspirin PO Chewable Tablet 81 mg PO once Route: PO; eh3 17:14 Follow up: Response: Medication administered at discharge. eh3 Medication: 17:14 VIS not applicable for this client. 3 Point of Care Testing: Blood Glucose: 13:56 Blood Glucose: 278 mg/dL; 3 Ranges: Intake: 16:00 IV: 1000ml; Total: 1000ml. [facility] Outcome: 16:28 Discharge ordered by . irma 17:14 Discharged to home ambulatory, with family, [facility] 17:14 Condition: stable 17:14 Discharge instructions given to patient, Instructed on discharge instructions, follow up and referral plans. Demonstrated understanding of instructions, follow-up care, 17:16 Patient left the ED. 3 NIH Stroke Scale - NIH Stroke Score Date: 04/21/2023 Time: 17:01 Total Score = 0 10. Dysarthria (speech clarity - read or repeat words) - 0(Normal) 11. Extinction and Inattention (visual/tactile/auditory/spatial/personal) - 0(No abnormality) 1a. Level of Consciousness (LOC) - 0(Alert) 1b. Level of Consciousness (LOC) (Month \T\ Age) - 0(Both) 1c. LOC Commands (Open \T\ Closes Eyes/Head Of Music) - 0(Both) 2. Best Gaze (Lateral Gaze Paresis) - 0(Normal) 3. Visual Field Loss - 0(No visual loss) 4. Facial Palsy - 0(Normal) 5a. Left Arm: Motor (10-second hold) - 0(No drift) 5b. Right Arm: Motor (10-second hold) - 0(No drift) 6a. Left Leg: Motor (5-second hold - always test supine) - 0(No drift) 6b. Right Leg: Motor (5-second hold - always test supine) - 0(No drift) 7. Limb Ataxia (finger/nose \T\ heel/jeter - test with eyes open) - 0(Absent) 8. Sensory Loss (pinprick arms/legs/face) - 0(Normal) 9. Best Language: Aphasia (description/naming/reading) - 0(No aphasia) Initials: irma Signatures: Dispatcher [employer] Amari Anthony MD MD cha Hall, Erin, RN RN 3
[2023-04-21] MEDS ORDERED: ONDANSETRON 4 MG/2 ML VIAL ONE (17:10)
[2023-04-21] MEDS ORDERED: ACETAMINOPHEN 325 MG TABLET ONE (17:10)
[2023-04-21] MEDS ORDERED: KETOROLAC 30 MG/ML INJ ONE (17:11)
[2023-04-21] MEDS ORDERED: ASPIRIN 81 MG CHEWABLE TABLET ONE (17:22)
[2023-04-21 17:51] VITALS: TEMP 98.8
[2023-04-21 18:03] VITALS: O2SAT 96
[2023-04-21 18:04] VITALS: BP 122/72
--- NOTE | 2023-04-22 16:40 | EKG ---
Test Date: 2023-04-21 Test Time: 13:44:34 Senior Engineering Specialist: Adilene HARRIS MEASUREMENT RESULTS: Intervals: Rate: 97 AL: 158 QRSD: 78 QT: 358 QTc: 454 [place]: P: 56 AL: 158 QRS: -43 T: 62 INTERPRETIVE STATEMENTS: Normal sinus rhythm Left axis deviation Septal infarct, age undetermined Abnormal ECG Compared to ECG 11/04/2013 14:11:40 Left-axis deviation now present Myocardial infarct finding now present Electronically Signed On 04-22-23 16:38:16 CDT by Sergo Saba
== END 2023-04-21 17:16 | disposition home or self-care (01) ==
LOC: ER 13:29
DX: E11.65 Type 2 diabetes mellitus with hyperglycemia (principal); R51.9 Headache, unspecified; R55 Syncope and collapse
CPT/HCPCS: 36415; 70450; 71045; 80048; 80076; 81001; 82947; 83690; 83735; 83880; 84443; 84484; 85025; 85610; 87635; 87804; 93005; 93970; 96361; 96374; 96375; 99285; J2405; J7030